=== PATIENT | male | born 1985 | race Caucasian/White ===

== ENCOUNTER 2021-05-08 10:07 | Inpatient (IN) | payer BC ==
[~2021-05-08 10:07] MED LIST: Heparin 10,000 UNITS/ 10 ML VIAL ONE; Iopamidol 370 76% 100 ML VIAL ONE; Iopamidol 370 76% 50 ML VIAL FS ONE; Nitroglycerin 0.4 MG TAB (25 Tab Bottle) ONE
[2021-05-08] MEDS ORDERED: Nitroglycerin 2% Ointment 1 INCH/1 GM Packet ONE (10:20)
[2021-05-08] MEDS ORDERED: Aspirin Chewable 81 MG TAB ONE (10:20)
[2021-05-08] MEDS ORDERED: Lidocaine 1% (PF) 30 ML VIAL ONE (10:23)
[2021-05-08 10:36] LABS: #Basophils 0.2 thou/uL (0.0-0.2); #Eosinphils 0.3 thou/uL (0.0-0.7); #Lymphocytes 3.9 thou/uL (1.20-3.40); #Monocytes 1.6 thou/uL (0.11-0.59); #Neutrophils 9.2 thou/uL (1.40-6.50); %Basophils 1.2 % (0.0-1.0); %Lymphocytes 25.8 % (21.0-51.0); %Monocytes 10.5 % (0.0-10.0); %Neutrophils 60.6 % (42.0-75.0); Hemoglobin 18.4 g/dL (14.0-18.0); Mean Corpuscular Hemoglobin 30.2 pg (27.0-31.0); Mean Corpuscular Volume 91.6 fL (78.0-98.0); Platelet Count 281 thou/uL (130-400); RBC Distribution Width 13.3 % (11.5-14.5); Red Blood Cell (RBC) Count 6.11 mill/uL (4.70-6.10); White Blood Cell (WBC) Count 15.1 thou/uL (4.8-10.8)
[2021-05-08] MEDS ORDERED: Midazolam HCl 2 mg/2 ml Vial ONE (10:47)
[2021-05-08] MEDS ORDERED: Fentanyl 100 MCG/2 ML VIAL ONE (10:47)
[2021-05-08] MEDS ORDERED: Heparin 10,000 UNITS/ 10 ML VIAL ONE (10:54)
[2021-05-08 10:59] LABS: ALT (SGPT) 34 U/L (8-55); AST (SGOT) 25 U/L (5-34); Albumin 4.4 g/dL (3.5-5.0); Alkaline Phosphatase 103 U/L (40-110); Anion Gap 16 mmol/L (10-20); BUN (Urea Nitrogen) 9 mg/dL (8.9-20.6); Bilirubin, Total 0.5 mg/dL (0.2-1.2); Calc. Creatinine Clearance 0 mL/min (70-130); Calcium 9.6 mg/dL (7.8-10.44); Carbon Dioxide 22 mmol/L (22-29); Chloride 103 mmol/L (98-107); Globulin 3.7 g/dL (2.4-3.5); Glucose 112 mg/dL (70-105); Lipase 27 U/L (8-78); Potassium 3.7 mmol/L (3.5-5.1); Protein, Total 8.1 g/dL (6.0-8.3); Sodium 137 mmol/L (136-145)
[2021-05-08] MEDS ORDERED: TICAGRELOR 90 MG TABLET ONE (11:10)
[2021-05-08] MEDS ORDERED: Nitroglycerin 100MG/250ML BOT 250 ML ONE (11:26)
[2021-05-08] MEDS ORDERED: Nitroglycerin 0.4 MG TAB (25 Tab Bottle) SL PRN (12:03)
[2021-05-08] MEDS ORDERED: Morphine 4 MG/ML VIAL SLOW IVP PRN ×2 (12:03→17:47)
[2021-05-08] MEDS ORDERED: Morphine 2 MG/ML VIAL SLOW IVP PRN (12:03)
[2021-05-08] MEDS ORDERED: Sodium Chloride 0.9% 1,000 ML IV SCH (12:15)
[2021-05-08 12:24] LABS: Cardiac Risk 5.5 (Less than 4.5)
[2021-05-08 13:32] LABS: SARS-CoV-2 NAA Rapid Test Not Detected (NotDetected)
[2021-05-08] MEDS ORDERED: Morphine 4 MG/ML VIAL ONE ×3 (14:37→20:25)
[2021-05-08 19:43] LABS: Troponin I 33.089 ng/mL (< 0.028)
[2021-05-08] MEDS: Atorvastatin Calcium 40 MG TAB PO SCH (20:10)
[2021-05-08] MEDS: TICAGRELOR 90 MG TABLET PO SCH (20:10)
[2021-05-09 02:19] LABS: #Eosinphils 0.2 thou/uL (0.0-0.7); #Lymphocytes 1.8 thou/uL (1.20-3.40); #Monocytes 1.1 thou/uL (0.11-0.59); #Neutrophils 9.7 thou/uL (1.40-6.50); %Basophils 0.3 % (0.0-1.0); %Eosinophils 1.5 % (0.0-10.0); %Lymphocytes 14.3 % (21.0-51.0); %Monocytes 8.4 % (0.0-10.0); %Neutrophils 75.4 % (42.0-75.0); Hemoglobin 16.3 g/dL (14.0-18.0); Mean Corpuscular Hemoglobin 30.6 pg (27.0-31.0); Mean Corpuscular Volume 92.7 fL (78.0-98.0); Mean Platelet Volume 8.9 fL (7.4-10.4); Platelet Count 200 thou/uL (130-400); RBC Distribution Width 13.4 % (11.5-14.5); Red Blood Cell (RBC) Count 5.33 mill/uL (4.70-6.10); White Blood Cell (WBC) Count 12.9 thou/uL (4.8-10.8)
[2021-05-09 02:53] LABS: Critical Call Chem Troponin I RESULT DECREASING
[2021-05-09 02:54] LABS: ALT (SGPT) 112 U/L (8-55); AST (SGOT) 127 U/L (5-34); Albumin 3.7 g/dL (3.5-5.0); Alkaline Phosphatase 83 U/L (40-110); Anion Gap 14 mmol/L (10-20); BUN (Urea Nitrogen) 10 mg/dL (8.9-20.6); Bilirubin, Total 1.1 mg/dL (0.2-1.2); Calc. Creatinine Clearance 0 mL/min (70-130); Calcium 8.9 mg/dL (7.8-10.44); Carbon Dioxide 21 mmol/L (22-29); Chloride 102 mmol/L (98-107); Globulin 2.8 g/dL (2.4-3.5); Glucose 109 mg/dL (70-105); Potassium 3.9 mmol/L (3.5-5.1); Protein, Total 6.5 g/dL (6.0-8.3); Sodium 133 mmol/L (136-145)
[2021-05-09 08:38] LABS: Critical Call Chem Troponin I RESULT DECREASING; Troponin I 8.725 ng/mL (< 0.028)
[2021-05-09] MEDS ORDERED: Acetaminophen 325 MG TAB PO PRN (09:07)
[2021-05-09] MEDS ORDERED: Acetaminophen 325 MG TAB ONE (09:30)
[2021-05-09] MEDS: TICAGRELOR 90 MG TABLET PO SCH ×2 (11:26→21:49)
[2021-05-09] MEDS: Aspirin 81 mg Enteric Coated Tablet PO SCH (11:26)
[2021-05-09] MEDS: Carvedilol 3.125 MG TAB PO SCH ×2 (11:29→18:27)
[2021-05-09] MEDS: Atorvastatin Calcium 40 MG TAB PO SCH (21:49)
[2021-05-10] MEDS: Carvedilol 3.125 MG TAB PO SCH (08:02)
[2021-05-10] MEDS: TICAGRELOR 90 MG TABLET PO SCH (08:02)
[2021-05-10] MEDS: Aspirin 81 mg Enteric Coated Tablet PO SCH (08:02)
[2021-05-10 08:05] VITALS: BP 133/94; TEMP 98.1
== END 2021-05-10 10:24 | disposition home or self-care (01) | DRG 246 ==
LOC: ERS 10:07 → CCL 10:57 → PACU-TCU 11:00 → 2SE 05-09 10:20
PROVIDERS: ADMIT Internal Medicine Cardiovascular Disease; ATTEND Internal Medicine Cardiovascular Disease
PROC: 027034Z Dilation of Coronary Artery, One Artery with Drug-eluting Intraluminal Device, Percutaneous Approach (ICD-10-PCS; principal; 2021-05-08)
PROC: 4A023N7 Measurement of Cardiac Sampling and Pressure, Left Heart, Percutaneous Approach (ICD-10-PCS; 2021-05-08)
PROC: B2111ZZ Fluoroscopy of Multiple Coronary Arteries using Low Osmolar Contrast (ICD-10-PCS; 2021-05-08)
PROC: 5A2204Z Restoration of Cardiac Rhythm, Single (ICD-10-PCS; 2021-05-08)
DX: I21.09 ST elevation (STEMI) myocardial infarction involving other coronary artery of anterior wall (principal); I49.01 Ventricular fibrillation; I10 Essential (primary) hypertension; E78.00 Pure hypercholesterolemia, unspecified; R73.03 Prediabetes; I25.5 Ischemic cardiomyopathy; F17.210 Nicotine dependence, cigarettes, uncomplicated; I25.10 Atherosclerotic heart disease of native coronary artery without angina pectoris; Z20.822 Contact with and (suspected) exposure to COVID-19; E66.9 Obesity, unspecified; Z88.2 Allergy status to sulfonamides; Z82.49 Family history of ischemic heart disease and other diseases of the circulatory system; Z68.32 Body mass index [BMI] 32.0-32.9, adult
CPT/HCPCS: 36415; 71045; 80053; 80061; 82553; 83036; 83690; 84484; 85025; 85347; 92928; 93005; 93010; 93458; 93798; 94760; 96374; 99152; 99153; C1874; C9600; J1644; J2001; J2250; J2270; J3010; Q9967; U0002

== ENCOUNTER 2021-05-20 21:59 | Observation (INO) | payer BC ==
[2021-05-20 22:02] VITALS: BMI 32.8
[2021-05-20] MEDS ORDERED: Ondansetron ODT 4 MG TAB SL PRN (22:15)
[2021-05-20] MEDS ORDERED: Ondansetron PF 4 MG/2 ML Vial IVP PRN (22:15)
[2021-05-20] MEDS ORDERED: Acetaminophen 325 MG TAB PO PRN (22:15)
[2021-05-21] MEDS ORDERED: Ondansetron PF 4 MG/2 ML Vial IVP PRN (00:08)
[2021-05-21] MEDS ORDERED: Nitroglycerin 0.4 MG TAB (25 Tab Bottle) SL PRN (00:08)
[2021-05-21] MEDS ORDERED: Acetaminophen 325 MG TAB PO PRN (00:08)
[2021-05-21 01:58] LABS: Troponin I 0.032 ng/mL (< 0.028)
[2021-05-21 05:35] LABS: #Eosinphils 0.3 thou/uL (0.0-0.7); #Lymphocytes 2.6 thou/uL (1.20-3.40); %Basophils 0.1 % (0.0-1.0); %Eosinophils 2.7 % (0.0-10.0); %Lymphocytes 26.3 % (21.0-51.0); %Monocytes 10.2 % (0.0-10.0); %Neutrophils 60.8 % (42.0-75.0); Hemoglobin 16.2 g/dL (14.0-18.0); Mean Corpuscular HGB CONC 34.5 g/dL (32.0-36.0); Mean Corpuscular Hemoglobin 31.6 pg (27.0-31.0); Mean Corpuscular Volume 91.5 fL (78.0-98.0); Mean Platelet Volume 10.2 fL (7.4-10.4); Platelet Count 182 thou/uL (130-400); RBC Distribution Width 13.2 % (11.5-14.5); Red Blood Cell (RBC) Count 5.15 mill/uL (4.70-6.10); White Blood Cell (WBC) Count 9.8 thou/uL (4.8-10.8)
[2021-05-21 06:00] LABS: Anion Gap 12 mmol/L (10-20); BUN (Urea Nitrogen) 7 mg/dL (8.9-20.6); Calc. Creatinine Clearance 151 mL/min (70-130); Calcium 9.6 mg/dL (7.8-10.44); Carbon Dioxide 26 mmol/L (22-29); Chloride 107 mmol/L (98-107); Glucose 96 mg/dL (70-105); Potassium 4.2 mmol/L (3.5-5.1); Sodium 141 mmol/L (136-145)
[2021-05-21 06:04] LABS: Troponin I 0.044 ng/mL (< 0.028)
[2021-05-21] MEDS: Aspirin 81 mg Enteric Coated Tablet PO SCH (08:54)
[2021-05-21] MEDS: Carvedilol 3.125 MG TAB PO SCH ×2 (08:54→16:19)
[2021-05-21] MEDS: Bupropion 150 MG XL TAB PO SCH (08:54)
[2021-05-21] MEDS: Enoxaparin Sodium 40 MG/0.4 ML SYRINGE SC SCH ×3 (08:54→12:05)
[2021-05-21] MEDS: TICAGRELOR 90 MG TABLET PO SCH ×2 (08:54→21:36)
[2021-05-21 12:20] LABS: SARS-CoV-2 PCR by NAA Not Detected (NotDetected)
[2021-05-21] MEDS ORDERED: Lisinopril 10 MG TAB PO SCH (13:00)
[2021-05-21] MEDS ORDERED: Calcium Carbonate 500 MG ChewTAB PO PRN (18:34)
[2021-05-21] MEDS ORDERED: Atorvastatin Calcium 40 MG TAB PO SCH (21:00)
[2021-05-22 05:13] LABS: #Eosinphils 0.3 thou/uL (0.0-0.7); #Lymphocytes 2.4 thou/uL (1.20-3.40); #Monocytes 1.1 thou/uL (0.11-0.59); #Neutrophils 6.3 thou/uL (1.40-6.50); %Basophils 0.2 % (0.0-1.0); %Eosinophils 2.8 % (0.0-10.0); %Lymphocytes 24.1 % (21.0-51.0); %Monocytes 10.8 % (0.0-10.0); %Neutrophils 62.2 % (42.0-75.0); Hemoglobin 16.2 g/dL (14.0-18.0); Mean Corpuscular HGB CONC 34.1 g/dL (32.0-36.0); Mean Corpuscular Hemoglobin 31.2 pg (27.0-31.0); Mean Corpuscular Volume 91.6 fL (78.0-98.0); Mean Platelet Volume 9.8 fL (7.4-10.4); Platelet Count 186 thou/uL (130-400); RBC Distribution Width 13.2 % (11.5-14.5); Red Blood Cell (RBC) Count 5.18 mill/uL (4.70-6.10); White Blood Cell (WBC) Count 10.1 thou/uL (4.8-10.8)
[2021-05-22 05:35] LABS: Anion Gap 13 mmol/L (10-20); BUN (Urea Nitrogen) 11 mg/dL (8.9-20.6); Calc. Creatinine Clearance 134 mL/min (70-130); Calcium 9.6 mg/dL (7.8-10.44); Carbon Dioxide 27 mmol/L (22-29); Chloride 105 mmol/L (98-107); Glucose 92 mg/dL (70-105); Potassium 4.6 mmol/L (3.5-5.1); Sodium 140 mmol/L (136-145)
[2021-05-22 07:13] VITALS: BP 138/94; TEMP 98.2
[2021-05-22] MEDS: Enoxaparin Sodium 40 MG/0.4 ML SYRINGE SC SCH (08:23)
[2021-05-22] MEDS: TICAGRELOR 90 MG TABLET PO SCH (08:23)
[2021-05-22] MEDS: Aspirin 81 mg Enteric Coated Tablet PO SCH (08:23)
[2021-05-22] MEDS: Bupropion 150 MG XL TAB PO SCH (08:23)
[2021-05-22] MEDS: Carvedilol 3.125 MG TAB PO SCH (08:23)
[2021-05-22] MEDS ORDERED: Lisinopril 5 MG TAB PO SCH (09:00)
[2021-05-23] MEDS ORDERED: FLU VACC QS2021-22(6MOS UP)/PF 60 MCG/0.5 ML SYRINGE IM ONE (09:00)
== END 2021-05-22 10:22 | disposition home or self-care (01) ==
LOC: 2SW 21:59
PROVIDERS: ADMIT Internal Medicine; ATTEND Physician Assistant Medical
DX: R07.89 Other chest pain (principal); I25.10 Atherosclerotic heart disease of native coronary artery without angina pectoris; K21.9 Gastro-esophageal reflux disease without esophagitis; G89.29 Other chronic pain; M54.9 Dorsalgia, unspecified; F17.210 Nicotine dependence, cigarettes, uncomplicated; I10 Essential (primary) hypertension; Z20.822 Contact with and (suspected) exposure to COVID-19; Z79.899 Other long term (current) drug therapy; Z88.2 Allergy status to sulfonamides; Z95.5 Presence of coronary angioplasty implant and graft
CPT/HCPCS: 36415; 80048; 84484; 85025; 93005; 93010; 96372; G0378; J1650; U0003; U0005

== ENCOUNTER 2021-05-30 14:52 | Emergency (ER) | payer BC ==
[2021-05-30 15:42] LABS: #Eosinphils 0.3 thou/uL (0.0-0.7); #Lymphocytes 2.3 thou/uL (1.20-3.40); #Monocytes 1.2 thou/uL (0.11-0.59); #Neutrophils 5.6 thou/uL (1.40-6.50); %Basophils 0.2 % (0.0-1.0); %Eosinophils 2.7 % (0.0-10.0); %Lymphocytes 24.3 % (21.0-51.0); %Monocytes 12.4 % (0.0-10.0); %Neutrophils 60.4 % (42.0-75.0); Hemoglobin 16.5 g/dL (14.0-18.0); Mean Corpuscular HGB CONC 35.1 g/dL (32.0-36.0); Mean Corpuscular Hemoglobin 31.7 pg (27.0-31.0); Mean Corpuscular Volume 90.4 fL (78.0-98.0); Mean Platelet Volume 10.1 fL (7.4-10.4); Platelet Count 178 thou/uL (130-400); RBC Distribution Width 13.2 % (11.5-14.5); Red Blood Cell (RBC) Count 5.21 mill/uL (4.70-6.10); White Blood Cell (WBC) Count 9.3 thou/uL (4.8-10.8)
[2021-05-30 16:05] LABS: ALT (SGPT) 51 U/L (8-55); AST (SGOT) 36 U/L (5-34); Albumin 4.5 g/dL (3.5-5.0); Alkaline Phosphatase 100 U/L (40-110); Anion Gap 16 mmol/L (10-20); BUN (Urea Nitrogen) 12 mg/dL (8.9-20.6); Bilirubin, Total 0.9 mg/dL (0.2-1.2); Calc. Creatinine Clearance 0 mL/min (70-130); Calcium 10.4 mg/dL (7.8-10.44); Carbon Dioxide 23 mmol/L (22-29); Chloride 101 mmol/L (98-107); Glucose 86 mg/dL (70-105); Potassium 3.9 mmol/L (3.5-5.1); Protein, Total 7.5 g/dL (6.0-8.3); Sodium 136 mmol/L (136-145)
[2021-05-30] MEDS ORDERED: Dicyclomine 20 MG TAB ONE (16:31)
== END 2021-05-30 17:51 | disposition home or self-care (01) ==
LOC: ERS 14:52
DX: R10.13 Epigastric pain (principal); I25.2 Old myocardial infarction; I25.10 Atherosclerotic heart disease of native coronary artery without angina pectoris; E78.5 Hyperlipidemia, unspecified; I10 Essential (primary) hypertension; F17.210 Nicotine dependence, cigarettes, uncomplicated; Z79.899 Other long term (current) drug therapy; I21.3 ST elevation (STEMI) myocardial infarction of unspecified site; Z95.5 Presence of coronary angioplasty implant and graft
CPT/HCPCS: 36415; 71045; 80053; 83690; 84443; 84484; 85025; 93005; 93798